=== PATIENT | male | born 1990 | race Two or more races ===

== ENCOUNTER 2016-12-26 09:39 | Emergency (ER) | payer MEDICAID, OTHER ==
[~2016-12-26] VITALS: Ht 170.2 cm; Wt 72.6 kg
[2016-12-26 11:40] VITALS: BP 112/64
== END 2016-12-26 11:59 | disposition home or self-care (01) ==
LOC: ER 09:39
DX: L72.9 Follicular cyst of the skin and subcutaneous tissue, unspecified (principal)

== ENCOUNTER 2016-12-30 12:25 | Emergency (ER) | payer MEDICAID ==
[~2016-12-30] VITALS: Ht 170.2 cm; Wt 76.2 kg
[2016-12-30 14:00] LABS: Basophils # (auto) 0 uL; Basophils % (auto) 0.2 % (0.0-2.0); Eosinophils # (auto) 0 uL; Eosinophils % (auto) 0.6 % (0.0-7.0); Hematocrit 45.2 % (41.0-53.0); Hemoglobin 15.5 g/dL (13.5-17.5); Lymphocytes # (auto) 1.5 uL; Mean Corpuscular Hemoglobin 30.4 pg (28.0-32.0); Mean Corpuscular Hgb Conc. 34.3 g/dL (32.0-36.0); Mean Corpuscular Volume 88.4 fL (80.0-100.0); Mean Platelet Volume 8.7 fL (7.4-10.4); Monocytes # (auto) 1.2 uL; Neutrophils # (auto) 4.7 uL; Neutrophils % (auto) 63.2 % (37.0-80.0); Platelet Count (auto) 281 10^3/uL (140-450); White Blood Cell 7.5 10^3/uL (4.4-10.8)
[2016-12-30 14:03] LABS: Albumin 3.8 g/dL (3.4-5.0); BUN/Creatinine Ratio 10.2; Calcium 8.7 mg/dL (8.5-10.1); Potassium 3.6 mmol/L (3.5-5.1)
[2016-12-30 14:06] LABS: Total Protein 8.2 g/dL (6.4-8.2)
[2016-12-30 14:39] VITALS: BP 136/86
== END 2016-12-30 15:09 | disposition home or self-care (01) ==
LOC: ER 12:25
DX: E04.1 Nontoxic single thyroid nodule (principal); M60.9 Myositis, unspecified
CPT/HCPCS: 36415; 70490; 71020; 80053; 85025